=== PATIENT | male | born 2000 | race Caucasian/White ===

== ENCOUNTER → 2020-06-27 16:40 | Outpatient (BNVA) | payer SELFPAY | PROVIDERS: Visit Provider Nurse Practitioner Family | DX: M25.512 Pain in left shoulder (principal); G89.29 Other chronic pain | CPT/HCPCS: 73030 ==

== ENCOUNTER 2020-07-05 07:20 | Outpatient (CLI) | payer SELFPAY ==
--- NOTE | 2020-07-05 07:15 | MR_ITS ---
WS: [id number] MRI LEFT SHOULDER HISTORY: M25.512 - Pain in left shoulder COMPARISON: 06/27/2020 TECHNIQUE: Multiplanar sequences of the shoulder joint are submitted. Normal AC joint without significant arthropathy or encroachment. No os acromion. Biceps tendon is in normal position. No tear. No marrow edema or fracture. No rotator cuff tears are identified. There is no muscle atrophy or edema. No joint effusion. No cystic masses. Abnormal contour of the inferior glenoid. There is blunting of the normal curvature of the glenoid an d very slight increased signal in the labrum. No associated marrow edema. Suspect remote injury. No H ill-Sachs deformity is appreciated. MR/MR shoulder LT wo con* [id number] IMPRESSION: 1. Abnormal blunting of the inferior glenoid with minimal increased signal and abnormal contour the inferior labrum. Most consistent with a remote osseous an d labral injury. No Hill-Sachs deformity is identified. 2. Remaining shoulder is negative.
== END 2020-07-05 07:21 | disposition home or self-care (01) ==
PROVIDERS: PCP Nurse Practitioner Family; Visit Provider Nurse Practitioner Family
DX: M25.512 Pain in left shoulder (principal); G89.29 Other chronic pain
CPT/HCPCS: 73221

== ENCOUNTER → 2022-01-31 11:40 | Outpatient (BNVA) | payer OTHER, SELFPAY | PROVIDERS: PCP Nurse Practitioner Family; Visit Provider Nurse Practitioner Family | DX: F41.9 Anxiety disorder, unspecified (principal); G43.009 Migraine without aura, not intractable, without status migrainosus; F41.1 Generalized anxiety disorder; R42 Dizziness and giddiness; R55 Syncope and collapse; F33.1 Major depressive disorder, recurrent, moderate; Z86.59 Personal history of other mental and behavioral disorders; F84.0 Autistic disorder; Z83.3 Family history of diabetes mellitus; R35.89 Other polyuria; H61.22 Impacted cerumen, left ear; H61.21 Impacted cerumen, right ear | CPT/HCPCS: 80053; 80061; 83036; 84443 ==

== ENCOUNTER → 2022-12-26 15:58 | Outpatient (BNVA) | payer MEDICAID, SELFPAY | PROVIDERS: PCP Nurse Practitioner Family; Visit Provider Nurse Practitioner Family | DX: W57.XXXA Bitten or stung by nonvenomous insect and other nonvenomous arthropods, initial encounter (principal) | CPT/HCPCS: 80053; 86618; 86666; 86757 ==

== ENCOUNTER → 2023-05-08 10:54 | Outpatient (BNVA) | payer MEDICAID, SELFPAY | PROVIDERS: PCP Nurse Practitioner Family; Visit Provider Psychiatry & Neurology Psychiatry | DX: F33.1 Major depressive disorder, recurrent, moderate (principal); F41.1 Generalized anxiety disorder; F43.12 Post-traumatic stress disorder, chronic; F84.0 Autistic disorder; Z79.899 Other long term (current) drug therapy | CPT/HCPCS: 80053; 80164; 84443 ==

== ENCOUNTER 2024-10-01 10:59 | Emergency (ER) | payer MEDICAID, SELFPAY ==
[2024-10-01 11:51] VITALS: BP 115/71; PULSE 88; RESP 16; TEMP 36.5; O2SAT 100; BMI 25.9
[2024-10-01] MEDS: lidocaine 1% 10 ML INJ SUBCUT (12:12)
[2024-10-01 12:26] VITALS: BP 118/73; PULSE 85; O2SAT 99
--- NOTE | 2024-10-01 12:42 | W.ED.WOUNDLC ---
HPI - Wound/Laceration General: Chief Complaint: Wound/Laceration Stated Complaint: genital pain Time Seen by Provider: 10/01/24 11:32 Source: patient Mode of arrival: ambulatory Limitations: no limitations History of Present Illness: 24-year-old male who states that he caught his right testicle on gianna wire does have a laceration to his scrotum roughly 3 cm bleeding is controlled he denies any pain he is up-to-date on his tetanus. Associated symptoms: Denies chills, fever(s), nausea or vomiting Related Data Home Medications ?Medication ?Instructions ?Recorded ?Confirmed topiramate 50 mg tablet 50 mg PO BID 10/01/24 10/01/24 Previous Rx's ?Medication ?Instructions ?Recorded buspirone 7.5 mg tablet 7.5 mg PO BID #60 tabs 06/10/24 fluoxetine 40 mg capsule (Prozac) 40 mg PO DAILY #30 caps 06/10/24 hydroxyzine HCl 50 mg tablet 100 mg (2 x 50 mg) PO .HS PRN 06/10/24 insomnia #60 tabs rizatriptan 10 mg disintegrating 10 mg PO Q2H PRN migraine headache 07/08/24 tablet (Maxalt-[employer]) #14 tabs Allergies Allergy/AdvReac Type Severity Reaction Status Date / Time [place] Allergy Severe ALGY-Rash Uncoded 10/01/24 12:03 eggs Allergy Severe ALGY-Rash Uncoded 10/01/24 12:03 PCN Allergy Mild rash Uncoded 10/01/24 12:03 Review of Systems Const: Denies: fever(s), chills, body aches or change in appetite ENMT: Denies: throat pain or dental pain Card: Denies: chest pain Resp: Denies: dyspnea GI: Denies: abdominal pain, nausea, vomiting or diarrhea : Denies: dysuria Musc: Denies: neck pain or back pain Skin/Breast: Denies: rash Neuro: Denies: headache(s) PFS ED PFSH: Medical History Elevated WBC count Psychiatric care History of ADHD Autism Surgical History No pertinent past surgical history Family History Mother Hypertension Social History Smoking and tobacco/nicotine status: current every day tobacco/nicotine user cigarettes Packs smoked per day: 1 Years cigarettes smoked: 8 Quit status (tobacco/nicotine): has tried quititng Number of times tried to quit tobacco: 1 Second hand smoke exposure: Yes Alcohol intake: never Substance/Drug Use: former Adopted: No Caregiver/support person: No Lives independently: Yes Household members: family Housing: Manufactured/Mobile home Marital status: Single Number of children: 0 Highest education level completed: High School Graduate service: No Current occupational status: unemployed Pets and animals: No Physical Exam Const: COMMON NORMALS: no acute distress, patient oriented x3 and healthy appearing HENMT: COMMON NORMALS: normocephalic and atraumatic HEAD & SCALP: normocephalic and atraumatic Eye: COMMON NORMALS: Equal, round and reactive pupils present and EOMs intact bilaterally PUPIL: Yes Equal, round and reactive pupils present Neck/C-Spine: COMMON NORMALS: full ROM and supple Chest: COMMONS NORMALS: normal inspection of the chest Resp: COMMON NORMALS: normal respiratory effort Cardio: COMMON NORMALS: regular rate RATE: regular rate Back/Pelvis: OTHER: 3 cm laceration to right scrotum does not extend into the testicle no bleeding Extremity: COMMON NORMALS: normal to inspection and full ROM Neuro: COMMON NORMALS: patient oriented x3, moves all extremities and no focal motor deficits Psych: COMMON NORMALS: mental status grossly normal, Normal thought process present and cooperative THOUGHT PROCESS: Normal thought process present Skin: COMMON NORMALS: no rashes or lesions noted and no wounds GENERAL SKIN EXAM: no rashes or lesions noted Procedures Laceration Laceration 1: Site: scrotum Side (If applicable): right Size (cm): 3 Description: linear Depth: simple, single layer Local Anesthetic: lidocaine 1% Amount of anesthesia used (mL): 5 Pre-repair: wound explored, irrigated extensively and deep structures intact Skin layer closed with: nylon Size (cm): 5-0 Number of sutures: 3 Technique: simple, interrupted Course Vital Signs: Vital signs: Vital Signs Temperature 97.7 F 10/01/24 11:51 Pulse Rate 85 10/01/24 12:26 Respiratory Rate 16 10/01/24 11:51 Blood Pressure 118/73 10/01/24 12:26 Pulse Oximetry 99 10/01/24 12:26 Oxygen Delivery Me thod Room Air 10/01/24 11:51 MDM - Wound/Laceration Medical Decision Making Patient presents with scrotum laceration did repair the laceration he is well-appearing here he stable for discharge his follow-up with his PCP return if worsening. Medical Records I reviewed the patient's medical records. No radiology studies performed this visit Discharge Plan Discharge Patient Disposition: Home Clinical Impression: Laceration Condition: Stable Prescriptions: No Action hydroxyzine HCl 50 mg tablet 100 mg PO .HS PRN (Reason: insomnia) Qty: 60 2RF buspirone 7.5 mg tablet 7.5 mg PO BID Qty: 60 11RF fluoxetine [Prozac] 40 mg capsule 40 mg PO DAILY Qty: 30 11RF rizatriptan [Maxalt-[employer]] 10 mg tablet,disintegrating 10 mg PO Q2H PRN (Reason: migraine headache) Qty: 14 3RF Rx Instructions: do not exceed 2 doses per 24 hrs topiramate 50 mg tablet 50 mg PO BID Rx Instructions: TAKE ONE TABLET BY MOUTH TWICE DAILY Discharge Orders: Discharge ED (Routine); Ordered 10/01/24 Ordered By: Danna Elkins Referrals: Lashae Powell FNP-C [Primary Care Provider] - Discharge Diet: Advance as tolerated Discharge Activity: Resume usual activity Patient Instructions: Laceration (ED) Print Language: Polish Coding Level of Care Code ED [employer] Assistant for Ileana Carreon
== END 2024-10-01 12:30 | disposition home or self-care (01) ==
PROVIDERS: Emergency Provider Emergency Medicine; PCP Nurse Practitioner Family
DX: S31.31XA Laceration without foreign body of scrotum and testes, initial encounter (principal); W26.8XXA Contact with other sharp object(s), not elsewhere classified, initial encounter; F17.210 Nicotine dependence, cigarettes, uncomplicated
CPT/HCPCS: 12002; 99283